=== PATIENT | male | born 1980 | race American Indian/Alaskan Native ===

== ENCOUNTER 2020-07-12 01:33 | Emergency (ER) | payer SELFPAY ==
[2020-07-12] MEDS ORDERED: ASPIRIN 325 MG TAB PO ONE (01:46)
--- NOTE | 2020-07-12 02:25 | XRay Report ---
CHEST 1 VIEW INDICATION: Chest Pain. COMPARISON: None. FINDINGS: Support devices: None. Heart: Normal. Lungs/Pleura: No acute pulmonary or pleural findings. IMPRESSION: 1. No acute findings. Signer Name: Julio Cherry MD Signed: 07/12/2020 2:21 AM Workstation Name: [id number]
[2020-07-12 03:19] LABS: Basophils % (Auto) 0.6 % (0.0-1.8); Eosinophils # (Auto) 0.1 K/mm3 (0.0-0.4); Eosinophils % (Auto) 1.1 % (0.0-4.3); Hematocrit 47.5 % (35.5-45.6); Hemoglobin 15.1 gm/dl (11.8-15.2); Lymphocytes # (Auto) 2.1 K/mm3 (1.2-5.4); Mean Corpuscular HGB Conc 32 % (32-34); Mean Corpuscular Volume 84 fl (84-94); Monocytes # (Auto) 0.6 K/mm3 (0.0-0.8); Monocytes % (Auto) 10.1 % (0.0-7.3); Platelet Count 235 K/mm3 (140-440); Red Blood Count 5.65 M/mm3 (3.65-5.03); Red Cell Distribution Width 15.9 % (13.2-15.2)
[2020-07-12 03:21] LABS: BUN/Creatinine Ratio 17; Blood Urea Nitrogen 19 mg/dL (9-20); Calcium 8.8 mg/dL (8.4-10.2); Hemolysis Index 19
--- NOTE | 2020-07-12 06:31 | Emergency Department Report ---
ED Palpitations HPI - General Chief Complaint: Arrhythmia/Palpitations Stated Complaint: HEART PALPATION Time Seen by Provider: 07/12/20 06:26 Source: patient Mode of arrival: Ambulatory Limitations: No Limitations - History of Present Illness Initial Comments: CC: palpitations HPI: This is a 40 yo male with hx of severe obesity who has had palpitations for 2 weeks. The sensations feels hard. Intermittent. Mild symptoms. No association with exertion. No persistent chest pain. No shortness of breath. He started keto diet one month ago. Drinks a lot of Coke Zero. Complaint: palpitations -: Gradual, week(s) (2) Context: occured during rest Arrythmia History: other (no cardiac history) Associated Symptoms: denies other symptoms - Related Data Allergies Allergy/AdvReac Type Severity Reaction Status Date / Time No Known Allergies Allergy Verified 07/12/20 06:26 ED Review of Systems ROS: Stated complaint: HEART PALPATION Other details as noted in HPI Comment: All other systems reviewed and negative Constitutional: denies: fever, malaise Respiratory: denies: cough, shortness of breath Cardiovascular: palpitations. denies: chest pain Gastrointestinal: denies: abdominal pain, nausea, vomiting ED Past Medical Hx - Past Medical History Previous Medical History?: No - Surgical History Past Surgical History?: No - Social History Smoking Status: Never Smoker Substance Use Type: None ED Physical Exam - General Limitations: No Limitations General appearance: alert, in no apparent distress - Head Head exam: Present: atraumatic, normocephalic - Eye Eye exam: Present: normal appearance - ENT ENT exam: Present: mucous membranes moist - Neck Neck exam: Present: normal inspection, full ROM - Respiratory Respiratory exam: Present: normal lung sounds bilaterally. Absent: respiratory distress, wheezes, rales, rhonchi - Cardiovascular Cardiovascular Exam: Present: regular rate, normal rhythm, normal heart sounds. Absent: systolic murmur, diastolic murmur, rubs, gallop - GI/Abdominal GI/Abdominal exam: Present: soft, normal bowel sounds. Absent: distended, t enderness, guarding, rebound - Rectal Rectal exam: Present: deferred - Extremities Exam Extremities exam: Present: normal inspection - Neurological Exam Neurological exam: Present: alert, oriented X3 - Psychiatric Psychiatric exam: Present: normal affect, normal mood - Skin Skin exam: Present: warm, dry, intact, normal color. Absent: rash ED Course Vital Signs 07/12/20 07/12/20 01:35 06:05 Temperature 97.6 F Pulse Rate 78 57 L Respiratory 18 16 Rate Blood Pressure 170/100 O2 Sat by Pulse 97 96 Oximetry ED Medical Decision Making - Lab Data Result diagrams: 07/12/20 01:54 07/12/20 01:54 Laboratory Results - last 24 hr 07/12/20 07/12/20 07/12/20 01:54 01:54 05:19 WBC 5.8 RBC 5.65 H Hgb 15.1 Hct 47.5 H MCV 84 MCH 27 L MCHC 32 RDW 15.9 H Plt Count 235 Lymph % (Auto) 37.0 H Karnes % (Auto) 10.1 H Eos % (Auto) 1.1 Baso % (Auto) 0.6 Lymph # (Auto) 2.1 Karnes # (Auto) 0.6 Eos # (Auto) 0.1 Baso # (Auto) 0.0 Seg Neutrophils % 51.2 Seg Neutrophils # 3.0 Sodium 138 Potassium 4.0 Chloride 102.8 Carbon Dioxide 22 Anion Gap 17 BUN 19 Creatinine 1.1 Estimated GFR > 60 BUN/Creatinine Ratio 17 Glucose 96 Calcium 8.8 Troponin T < 0.010 < 0.010 - EKG Data 07/12/20 06:29 EKG obtained 0140 EKG interpreted by me NSR rate 75 bpm nl axis normal intervals no ST elevation multiple PVCs - Radiology Data Radiology results: report reviewed no acute findings CXR according to radiology impression - Medical Decision Making Palpitations due to PVCs. Recommended lifestyle changes, increased hydration. Referred to PCP> Critical care attestation.: If time is entered above; I have spent that time in minutes in the direct care of this critically ill patient, excluding procedure time. ED Disposition Clinical Impression: PVC's (premature ventricular contractions), Palpitations Disposition: DC-01 TO HOME OR SELFCARE Is pt being admited?: No Does the pt Need Aspirin: No Condition: Stable Instructions: Premature Ventricular Contraction Referrals: PRIMARY CARE,MD [Primary Care Provider] - 3-5 Days Forms: Work/School Release Form(ED)
[2020-07-12 07:24] VITALS: BP 140/83
== END 2020-07-12 06:45 | disposition home or self-care (01) ==
LOC: ED 01:33
DX: I49.3 Ventricular premature depolarization (principal); R00.2 Palpitations; E66.9 Obesity, unspecified; Z68.43 Body mass index [BMI] 50.0-59.9, adult
CPT/HCPCS: 36415; 71045; 80048; 84484; 85025; 93005